=== PATIENT | male | born 1930 | race Caucasian/White ===

== ENCOUNTER → 2017-10-04 | Outpatient (CLI) | payer OTHER ==
[~2017-10-04] MED LIST: ALEN70 PO; ASPI325 PO; ASPI81CH PO; ASPI81EC; CHOL10002; Calcium 600 +1 EAC1 PO; ESCI10; FOLI1 PO; HYDACE5 PO; HYDR1TAB94 PO; LISI5 PO; METO50ER; METO50ER PO; METTREX2.5 PO; NYSTRIT TOP; SENN187 PO; TAMS.4ER PO; Vitamin D2000 UNIT PO
[2017-10-04 16:58] LABS: Protein, Urine Quantitative 26.7 mg/dL (0.0-11.9)
[2017-10-04 17:02] LABS: Microalbumin, Urine Quant. 32.6 mg/L (0.000-20.000)
== END | disposition home or self-care (01) ==
LOC: OLS 14:30
PROVIDERS: Internal Medicine Nephrology
DX: N18.3 Chronic kidney disease, stage 3 (moderate) (principal); D63.1 Anemia in chronic kidney disease; N25.81 Secondary hyperparathyroidism of renal origin; E55.9 Vitamin D deficiency, unspecified; E78.00 Pure hypercholesterolemia, unspecified; R76.9 Abnormal immunological finding in serum, unspecified; R94.5 Abnormal results of liver function studies; R94.6 Abnormal results of thyroid function studies; D51.8 Other vitamin B12 deficiency anemias; D52.8 Other folate deficiency anemias; D50.9 Iron deficiency anemia, unspecified; G60.9 Hereditary and idiopathic neuropathy, unspecified
CPT/HCPCS: 81050; 82043; 84156

== ENCOUNTER → 2017-12-08 | Outpatient (CLI) | payer OTHER | END | disposition home or self-care (01) | LOC: LAB SHORT 07:43 → PLD 07:43 | DX: R23.4 Changes in skin texture (principal) | CPT/HCPCS: 88305 ==

== ENCOUNTER 2020-05-22 06:17 | Day surgery (SDC) | payer OTHER ==
[~2020-05-22] VITALS: Ht 167.6 cm; Wt 95.6 kg
[~2020-05-22 06:17] MED LIST changes: +Aspir 8181 MG; +HYDSUL200; +LOSA25; +METTREX2.5; +PRED1 PO
[2020-05-22] MEDS ORDERED: SULF500 (06:56)
[2020-05-22] MEDS ORDERED: CALC.25 (06:57)
--- NOTE | 2020-05-22 07:00 | NUR ---
05/22/20 0700 Jurgen Tse CALL LIGHT WITHIN REACH
== END 2020-05-22 08:11 | disposition home or self-care (01) ==
LOC: ORSCSDS 06:17
PROVIDERS: Ophthalmology
PROC: 08RK3JZ Replacement of Left Lens with Synthetic Substitute, Percutaneous Approach (ICD-10-PCS; principal; 2020-05-22 07:30)
DX: H25.12 Age-related nuclear cataract, left eye (principal); I10 Essential (primary) hypertension; I25.10 Atherosclerotic heart disease of native coronary artery without angina pectoris; G47.33 Obstructive sleep apnea (adult) (pediatric); I25.2 Old myocardial infarction; Z79.899 Other long term (current) drug therapy; E66.9 Obesity, unspecified; Z68.34 Body mass index [BMI] 34.0-34.9, adult; Z79.82 Long term (current) use of aspirin
CPT/HCPCS: J2001; J2250; J3010; J3301; J7040; J7120; V2632